=== PATIENT | male | born 1960 | race Caucasian/White ===

== ENCOUNTER 2020-11-17 11:59 | Inpatient (IN) | payer SELFPAY ==
[~2020-11-17] VITALS: Ht 175.3 cm; Wt 111.1 kg
[2020-11-17 12:11] VITALS: BP_SYST 135
--- NOTE | 2020-11-17 12:28 | NUR ---
Patient to ER bed 3 to gown for evaluation. Side rails up. Report given to Esther CM.
--- NOTE | 2020-11-17 12:35 | NUR ---
PT CAME INTO ER FROM HOME C/O SOB X 2DAYS. REPORTS THAT HE QUIT SMOKING 2 DAYS AGO AND SINCE HAS FELT "DIFFICULTY BREATHING" AND ANXIETY. UPON ARRIVAL PT DOES NOT HAVE ANY OBVIOUS SX OF SOB OR DYSPNEA. V/S STABLE, AAOX4 AND AMBULATORY WITH NO ASSIST. HX OF DM AND TAKES METFORMIN AT HOME
--- NOTE | 2020-11-17 12:52 | NUR ---
DR JENNINGS IN TO ASSESS
[2020-11-17 13:30] LABS: BASOPHILS # (AUTO) 0.1 K/uL (0.0-0.2); BASOPHILS % (AUTO) 1.2 % (0.0-2.0); EOSINOPHILS # (AUTO) 0.7 K/uL (0.0-0.4); EOSINOPHILS % (AUTO) 6.1 % (0.0-4.0); HEMATOCRIT 40.9 % (36-54); HEMOGLOBIN 13.8 g/dL (14.0-18.0); LYMPHOCYTES # (AUTO) 2.6 K/uL (1.0-5.5); MEAN CORPUSCULAR HEMOGLOBIN 29 pg (27-31); MEAN CORPUSCULAR HGB CONC 34 % (32-36); MEAN CORPUSCULAR VOLUME 87 fL (79.0-98.0); MONOCYTES # (AUTO) 0.8 K/uL (0.0-1.0); MONOCYTES % (AUTO) 7.1 % (1.7-9.3); NEUTROPHILS % (AUTO) 62.6 % (40.0-70.0); PLATELET COUNT (AUTO) 224 K/uL (130-430); RED BLOOD CELL COUNT(AUTO) 4.71 MIL/uL (4.2-6.2); RED CELL DISTRIBUTION WIDTH 13.8 % (9.0-15.0); WHITE BLOOD COUNT (AUTO) 11.1 K/uL (4.8-10.8)
[2020-11-17 13:41] LABS: CALCIUM 8.6 mg/dL (8.4-11.0); CREATININE 0.9 mg/dL (0.55-1.30); POTASSIUM 3.7 mmol/L (3.5-5.1)
--- NOTE | 2020-11-17 13:45 | NUR ---
PORTABLE X-RAY AT THE BEDSIDE
[2020-11-17 13:55] LABS: ALBUMIN 3.7 g/dL (3.4-4.8); TOTAL BILIRUBIN 1.5 mg/dL (0.0-1.0)
--- NOTE | 2020-11-17 14:20 | NUR ---
PT RESTING IN BED, NO S/SX OF DISTRESS. REQUESTING FOOD. V/S STABLE
[2020-11-17] MEDS ORDERED: GLU500 PO (14:26)
--- NOTE | 2020-11-17 14:40 | NUR ---
PT PROVIDED WITH LUNCH TRAY
--- NOTE | 2020-11-17 15:10 | NUR ---
ADMISSION ORDERS RECEIVED FROM DR. OGDEN
[2020-11-17] MEDS ORDERED: ASPIRIN 81 MG TAB.CHEW PO ONE (15:15)
--- NOTE | 2020-11-17 15:15 | NUR ---
CALLED FOR TELE BED, CHARGE NURSE WILL CALL BACK
--- NOTE | 2020-11-17 16:07 | NUR ---
Patient will be admitted to care of DR. OGDEN. Admitted to TELE unit. Will go to room 100A. Belongings list completed. Complete and up to date summary report printed. SBAR report to be given at bedside with opportunity for questions.
--- NOTE | 2020-11-17 16:23 | NUR ---
CONSULTATION PAGED REASON FOR CONSULTATION:CHEST PAIN WAS CONSULT CALLED?Y PERSON WHO WAS NOTIFIED:JOSUE CONSULTING PHYSICIAN:KIMBERLYN AYALA TRANSPORTATION CONSULTANT SPECIALTY:CARDIO TRANSPORTATION CONSULTANT PHONE NUMBER:[phone] REQUESTING PHYSICIAN:ANITA AYALA
--- NOTE | 2020-11-17 16:25 | NUR ---
ADMISSION NOTE Received patient from ER via gurney. Patient admitted with diagnosis of chest pain and sob x 2 days. Patient is awake, alert, oriented X4. Patient oriented to hospital room, call light, toileting, pain management and safety-teach back done. Patient informed that nereyda will be his nurse and that their room number is 100A. Personal belongings checked and Belongings List documented. Call light within reach.
[2020-11-17 17:02] VITALS: BP_SYST 111
[2020-11-17] MEDS ORDERED: ONDANSETRON HCL 4 MG/2 ML VIAL IVP PRN (17:45)
[2020-11-17] MEDS ORDERED: HYDROcodone/ACETAMIN 10-325 MG TAB PO PRN (17:45)
[2020-11-17] MEDS ORDERED: HYDROcodone/ACETAMIN 5-325 MG TAB (NORCO/ VICODIN) PO PRN (17:45)
[2020-11-17] MEDS ORDERED: ACETAMINOPHEN 325 MG TABLET PO PRN (17:45)
[2020-11-17] MEDS ORDERED: NALOXONE HCL 0.4 MG/ML AMP (NARCAN) IVP PRN ×2 (17:45)
[2020-11-17] MEDS ORDERED: LORazepam 2 MG/ML VIAL IVP PRN (17:45)
[2020-11-17 18:32] VITALS: BP_SYST 111
[2020-11-17] MEDS: metFORMIN HCL 500 MG TABLET PO SCH (19:04)
--- NOTE | 2020-11-17 19:30 | NUR ---
Opening Notes Patient is awake, alert, in bed, bed locked and in lowest position, respirations even and unlabored, on room air, no signs of respiratory distress, call light within reach. Will continue to monitor.
--- NOTE | 2020-11-17 19:59 | NUR ---
CLOSING NOTES: PATIENT IS AWAKE, ALERT, AND ORIENTED. PATIENT IS TOLERATING OXYGEN ON ROOM AIR WITH NO SIGNS OF DISTRESS OR SHORTNESS OF BREATH NOTED. PATIENT DENIES ANY PAIN AT THE MOMENT. PATIENT IN STABLE CONDITION. SAFETY, FALL, AND ASPIRATION PRECAUTION REMAINED IN PLACE. BED LOCKED IN LOWEST POSITION WITH CALL LIGHT IN REACH. WILL ENDORSE PATIENT CARE TO ONCOMING TRUCK SERVICE TECHNICIAN NURSE.
[2020-11-17 20:31] VITALS: BP_SYST 126
[2020-11-17] MEDS: NORMAL SALINE 5 ML DISP.SYRIN IVF SCH (21:23)
[2020-11-17] MEDS ORDERED: NORMAL SALINE 5 ML DISP.SYRIN IVF SCH (22:00)
--- NOTE | 2020-11-17 22:00 | NUR ---
Rounding Notes Patient is asleep, in bed, bed locked and in lowest position, respirations even and unlabored, on room air, no signs of respiratory distress, call light within reach. Will continue to monitor.
--- NOTE | 2020-11-17 23:40 | NUR ---
[address] DR. JEISON Fine FOR CRITICAL LAB VALUE
--- NOTE | 2020-11-17 23:45 | NUR ---
DR MCHUGH MADE AWARE OF LAB CRITICAL Troponin 0.238 resulted at 2338. Patient complains of SOB upon exertion. No new orders at this time, will continue to monitor.
[2020-11-18] MEDS: NORMAL SALINE 5 ML DISP.SYRIN IVF SCH (05:13)
--- NOTE | 2020-11-18 06:23 | NUR ---
Closing Note Patient is awake, transferred to chair, respirations even and unlabored, on room air, no signs of respiratory distress, no complaints of pain. All needs met. Will endorse patient care to day shift. Will continue to monitor.
[2020-11-18 06:41] LABS: BASOPHILS # (AUTO) 0.1 K/uL (0.0-0.2); BASOPHILS % (AUTO) 0.6 % (0.0-2.0); EOSINOPHILS # (AUTO) 0.7 K/uL (0.0-0.4); HEMATOCRIT 42.2 % (36-54); HEMOGLOBIN 14.2 g/dL (14.0-18.0); LYMPHOCYTES # (AUTO) 2.1 K/uL (1.0-5.5); LYMPHOCYTES % (AUTO) 18.5 % (20.5-51.5); MEAN CORPUSCULAR HEMOGLOBIN 29 pg (27-31); MEAN CORPUSCULAR HGB CONC 34 % (32-36); MEAN CORPUSCULAR VOLUME 87 fL (79.0-98.0); MONOCYTES # (AUTO) 0.9 K/uL (0.0-1.0); MONOCYTES % (AUTO) 8.2 % (1.7-9.3); NEUTROPHILS # (AUTO) 7.5 K/uL (1.8-7.7); NEUTROPHILS % (AUTO) 66.7 % (40.0-70.0); PLATELET COUNT (AUTO) 225 K/uL (130-430); RED BLOOD CELL COUNT(AUTO) 4.84 MIL/uL (4.2-6.2); RED CELL DISTRIBUTION WIDTH 13.8 % (9.0-15.0); WHITE BLOOD COUNT (AUTO) 11.2 K/uL (4.8-10.8)
[2020-11-18 07:16] LABS: ALBUMIN 3.7 g/dL (3.4-4.8); CALCIUM 8.9 mg/dL (8.4-11.0); CREATININE 0.73 mg/dL (0.55-1.30); PHOSPHORUS 4.3 mg/dL (2.7-4.5); POTASSIUM 4.1 mmol/L (3.5-5.1); THYROID STIMULATING HORMONE 1.53 uIu/mL (0.36-3.74); TOTAL BILIRUBIN 1.6 mg/dL (0.0-1.0)
--- NOTE | 2020-11-18 07:30 | NUR ---
OPENING NOTES: RECEIVED PATIENT FROM POSTPARTUM NURSE NURSE. PATIENT IS AWAKE, ALERT SITTING IN CHAIR. PATIENT IS TOLERATING OXYGEN ON ROOM AIR WITH NO SIGNS OF DISTRESS OR SHORTNESS OF BREATH NOTED. DENIES ANY PAIN AT THE MOMENT. PATIENT IN STABLE CONDITION. SAFETY, FALL, AND ASPIRATION PRECAUTIONS ARE IN PLACE. BED LOCKED IN LOWEST POSITION WITH CALL LIGHT IN REACH. WILL CONTINUE TO MONITOR PATIENT FOR ANY CHANGES.
[2020-11-18 08:00] VITALS: BP_SYST 126
[2020-11-18] MEDS: metFORMIN HCL 500 MG TABLET PO SCH (08:10)
[2020-11-18] MEDS ORDERED: ASPIRIN 81 MG TAB.CHEW PO SCH (09:00)
[2020-11-18 12:00] VITALS: BP_SYST 109
--- NOTE | 2020-11-18 13:59 | NUR ---
SS notes: PATTERNMAKER PRESSURE CAST was referred by CM to see patient for DCP and Self-pay. PATTERNMAKER PRESSURE CAST met with patient at bedside. Pt was alert and oriented x4, calm and cooperative throughout the encounter. Pt is a 60 y/o male who came in via ED for chest pain. Pt stated he came to the ED because he thought he had Covid and needed to be tested. Pt stated his heart issues has always been present and was even admitted for it. Pt stated he lives with his and is independent with all his ADL's and does require any DME. Pt stated he sees Dr. Paz. Pt does not have insurance and does not qualify for [employer], stating "I make too much money". Pt stated he has tried to apply for [employer] in the past. Pt stated he does not have a history of mental health and no history of substance use. Pt repeatedly say he wants to go home, and might go AMA.
--- NOTE | 2020-11-18 14:00 | NUR ---
AMA: Patient does not wish to proceed with medical care recommended by Dr. Cruz. Patient given information related to possible complications, up to and including , which could occur as a result of leaving hospital at this time. Patient verbalizes understanding of risks involved leaving against medical advice. Patient has signed AMA form.
== END 2020-11-18 14:00 | disposition left against medical advice (07) | DRG 311 ==
LOC: SED 11:59 → STU 15:11
PROVIDERS: ADMIT Preventive Medicine Preventive Medicine/Occupational Environmental Medicine; ATTEND Preventive Medicine Preventive Medicine/Occupational Environmental Medicine
DX: I24.9 Acute ischemic heart disease, unspecified (principal); D72.829 Elevated white blood cell count, unspecified; D64.9 Anemia, unspecified; Z53.29 Procedure and treatment not carried out because of patient's decision for other reasons; E11.65 Type 2 diabetes mellitus with hyperglycemia; Z20.822 Contact with and (suspected) exposure to COVID-19; I10 Essential (primary) hypertension; Z87.891 Personal history of nicotine dependence
CPT/HCPCS: 36415; 71045; 80053; 80061; 82550-TC; 83735-TC; 83880; 84100-TC; 84443-TC; 84484; 85025; 93005; 93306; G0378

== ENCOUNTER 2021-07-05 12:42 | Inpatient (IN) | payer SELFPAY ==
[~2021-07-05] VITALS: Ht 172.7 cm; Wt 117.5 kg
[~2021-07-05 12:42] MED LIST: GLU500 PO
[2021-07-05 12:56] VITALS: BP_SYST 145
[2021-07-05 13:46] LABS: BASOPHILS # (AUTO) 0.1 K/uL (0.0-0.2); BASOPHILS % (AUTO) 0.9 % (0.0-2.0); EOSINOPHILS # (AUTO) 0.4 K/uL (0.0-0.4); EOSINOPHILS % (AUTO) 4.7 % (0.0-4.0); HEMATOCRIT 43.1 % (36-54); HEMOGLOBIN 14.5 g/dL (14.0-18.0); LYMPHOCYTES # (AUTO) 2.6 K/uL (1.0-5.5); LYMPHOCYTES % (AUTO) 27.8 % (20.5-51.5); MEAN CORPUSCULAR HEMOGLOBIN 30 pg (27-31); MEAN CORPUSCULAR HGB CONC 34 % (32-36); MEAN CORPUSCULAR VOLUME 89 fL (79.0-98.0); MONOCYTES # (AUTO) 0.7 K/uL (0.0-1.0); MONOCYTES % (AUTO) 7.7 % (1.7-9.3); NEUTROPHILS # (AUTO) 5.6 K/uL (1.8-7.7); NEUTROPHILS % (AUTO) 58.9 % (40.0-70.0); PLATELET COUNT (AUTO) 228 K/uL (130-430); RED BLOOD CELL COUNT(AUTO) 4.85 MIL/uL (4.2-6.2); RED CELL DISTRIBUTION WIDTH 14.2 % (9.0-15.0); WHITE BLOOD COUNT (AUTO) 9.5 K/uL (4.8-10.8)
[2021-07-05 13:52] LABS: CALCIUM 8.7 mg/dL (8.4-11.0); CREATININE 0.98 mg/dL (0.55-1.30); POTASSIUM 4.2 mmol/L (3.5-5.1)
[2021-07-05 14:01] LABS: ALBUMIN 3.7 g/dL (3.4-4.8); TOTAL BILIRUBIN 0.6 mg/dL (0.0-1.0)
[2021-07-05] MEDS ORDERED: ALBU90AE2 INH (16:00)
[2021-07-05] MEDS ORDERED: METF-833 PO (16:00)
[2021-07-05] MEDS ORDERED: GLIP-201 PO (16:02)
[2021-07-05] MEDS ORDERED: ASPI81CA PO (16:02)
[2021-07-05] MEDS ORDERED: LOSA25TA3 PO (16:02)
[2021-07-05] MEDS ORDERED: *HEPARIN PER PHARMACY XX ONE (16:45)
[2021-07-05 17:49] LABS: PROTHROMBIN TIME 10.4 SECS (9.5-12.5)
[2021-07-05] MEDS ORDERED: NITR0.4T47 SL (18:42)
[2021-07-05] MEDS ORDERED: LIP10 PO (18:42)
[2021-07-05] MEDS ORDERED: HEPARIN SODIUM,PORCINE 5,000 UNITS/ML VIAL IVP ONE (18:45)
[2021-07-05] MEDS ORDERED: HEPARIN 25,000 UNITS in 250 ML PREMIX IV PRN (18:45)
[2021-07-05 18:59] VITALS: BP_SYST 145
[2021-07-05] MEDS ORDERED: HEPARIN SODIUM,PORCINE 2000 UNITS/0.4 ML BOLUS IVP PRN (21:00)
[2021-07-05] MEDS ORDERED: HEPARIN SODIUM,PORCINE 3000 UNITS/0.6 ML BOLUS IVP PRN (21:00)
== END 2021-07-05 19:00 | disposition home or self-care (01) | DRG 204 ==
LOC: SED 12:42 → STU 16:32
PROVIDERS: ADMIT Preventive Medicine Preventive Medicine/Occupational Environmental Medicine; ATTEND Preventive Medicine Preventive Medicine/Occupational Environmental Medicine
DX: R06.02 Shortness of breath (principal); I10 Essential (primary) hypertension; Z20.822 Contact with and (suspected) exposure to COVID-19; E11.9 Type 2 diabetes mellitus without complications; J44.9 Chronic obstructive pulmonary disease, unspecified; Z87.891 Personal history of nicotine dependence
CPT/HCPCS: 36415; 71045; 80053; 83880; 84484; 85025; 85610-TC; 85730-TC; 93005; 99285; G0378